=== PATIENT | female | born 1935 | race Caucasian/White ===

== ENCOUNTER → 2018-02-04 | Outpatient (CLI) | payer OTHER ==
[~2018-02-04] MED LIST: ACETAMINOPHEN325 M1 PO; ACTOS 30 MG TAB30 MG PO; ALLERGY RELIEF60 MG PO; BENAZEPRIL HCL10 MG PO; BONIVA150 MG PO; CELEBREX 200 M200 MG PO; CLARITIN10 MG PO; CLOTRIMAZOLE-BE15 GM TP; COUMADIN 2.5MG2.5 M1 PO; COUMADIN 3 MG TA3 MG PO; DIGOXIN250 MCG PO; ENOXAPARIN120 MG/0.8 SUBQ; ENOXAPARIN80 MG/0.8 SQ; FENTANYL PA25 MCG/HR TP; FEXOFENADINE HC60 MG PO; FUROSEMIDE 40 M40 M1 PO; HYDROCODON-ACE1 EACH PO; HYDROCODONE-AP1 EAC6 PO; JANTOVEN1 MG PO; JANUVIA50 MG PO; LASIX 20 MG TAB20 MG PO; LEVOCETIRIZINE D5 MG PO; LIDODERM 5%1 PATCH; LIPITOR10 MG PO; LIPITOR40 MG PO; LOPRESSOR25 PO; LOTENSIN5 MG PO; MELOXICAM7.5 MG PO; NEURONTIN600 MG PO; OMEPRAZOLE20 MG PO; OXYBUTYNIN CHLO10 MG PO; OXYCODONE-ACET1 EACH PO; PERCOCET 5-3251 EACH PO; PIOGLITAZONE15 MG PO; POTASSIUM20 PO; PRILOSEC 20 MG20 MG PO; TRADJENTA5 MG PO; VITAMIN D31000 UNI2 PO; VITAMIN D3400 UNIT PO
== END ==
LOC: HYPER 01-21 16:17
DX: E11.622 Type 2 diabetes mellitus with other skin ulcer (principal); L97.821 Non-pressure chronic ulcer of other part of left lower leg limited to breakdown of skin; E11.36 Type 2 diabetes mellitus with diabetic cataract; E11.22 Type 2 diabetes mellitus with diabetic chronic kidney disease; I12.9 Hypertensive chronic kidney disease with stage 1 through stage 4 chronic kidney disease, or unspecified chronic kidney disease; N18.4 Chronic kidney disease, stage 4 (severe); B37.2 Candidiasis of skin and nail; D64.9 Anemia, unspecified; E78.5 Hyperlipidemia, unspecified; G30.9 Alzheimer's disease, unspecified; I87.2 Venous insufficiency (chronic) (peripheral); M10.9 Gout, unspecified; M16.9 Osteoarthritis of hip, unspecified; F32.9 Major depressive disorder, single episode, unspecified; F02.80 Dementia in other diseases classified elsewhere, unspecified severity, without behavioral disturbance, psychotic disturbance, mood disturbance, and anxiety; Z79.01 Long term (current) use of anticoagulants; Z79.84 Long term (current) use of oral hypoglycemic drugs; Z95.2 Presence of prosthetic heart valve

== ENCOUNTER → 2018-02-18 | Outpatient (CLI) | payer OTHER | LOC: HYPER 07:14 | DX: E11.622 Type 2 diabetes mellitus with other skin ulcer (principal); L97.821 Non-pressure chronic ulcer of other part of left lower leg limited to breakdown of skin; E11.36 Type 2 diabetes mellitus with diabetic cataract; E11.22 Type 2 diabetes mellitus with diabetic chronic kidney disease; I12.9 Hypertensive chronic kidney disease with stage 1 through stage 4 chronic kidney disease, or unspecified chronic kidney disease; N18.4 Chronic kidney disease, stage 4 (severe); E78.5 Hyperlipidemia, unspecified; B37.2 Candidiasis of skin and nail; D64.9 Anemia, unspecified; G30.9 Alzheimer's disease, unspecified; I87.2 Venous insufficiency (chronic) (peripheral); K21.9 Gastro-esophageal reflux disease without esophagitis; M16.9 Osteoarthritis of hip, unspecified; M10.9 Gout, unspecified; F32.9 Major depressive disorder, single episode, unspecified; F02.80 Dementia in other diseases classified elsewhere, unspecified severity, without behavioral disturbance, psychotic disturbance, mood disturbance, and anxiety; Z79.01 Long term (current) use of anticoagulants; Z95.2 Presence of prosthetic heart valve; Z79.84 Long term (current) use of oral hypoglycemic drugs ==

== ENCOUNTER → 2018-03-12 | Outpatient (CLI) | payer OTHER | LOC: HYPER 06:52 | DX: E11.622 Type 2 diabetes mellitus with other skin ulcer (principal); L97.821 Non-pressure chronic ulcer of other part of left lower leg limited to breakdown of skin; E11.36 Type 2 diabetes mellitus with diabetic cataract; E11.22 Type 2 diabetes mellitus with diabetic chronic kidney disease; I12.9 Hypertensive chronic kidney disease with stage 1 through stage 4 chronic kidney disease, or unspecified chronic kidney disease; N18.4 Chronic kidney disease, stage 4 (severe); E78.5 Hyperlipidemia, unspecified; B37.2 Candidiasis of skin and nail; D64.9 Anemia, unspecified; G30.9 Alzheimer's disease, unspecified; I87.2 Venous insufficiency (chronic) (peripheral); K21.9 Gastro-esophageal reflux disease without esophagitis; M10.9 Gout, unspecified; M16.9 Osteoarthritis of hip, unspecified; N39.3 Stress incontinence (female) (male); N30.90 Cystitis, unspecified without hematuria; F32.9 Major depressive disorder, single episode, unspecified; F02.80 Dementia in other diseases classified elsewhere, unspecified severity, without behavioral disturbance, psychotic disturbance, mood disturbance, and anxiety; Z79.01 Long term (current) use of anticoagulants; Z79.84 Long term (current) use of oral hypoglycemic drugs; Z95.2 Presence of prosthetic heart valve ==

== ENCOUNTER 2018-10-21 11:44 | Inpatient (IN) | payer OTHER ==
[~2018-10-21] VITALS: Ht 147.3 cm; Wt 65.4 kg
[~2018-10-21 11:44] MED LIST changes: -OMEPRAZOLE20 MG PO; +OMEPRAZOLE40 MG PO
[2018-10-21 11:45] VITALS: BP 104/56
[2018-10-21 12:12] LABS: BASOPHILS 0.4 % (0.0-2.0); HEMATOCRIT 26.5 % (37.0-47.0); HEMOGLOBIN 8.6 gm/dL (12.0-15.0); LYMPHOCYTES 12.2 % (24.0-44.0); MCH 31.3 pg (26.0-34.0); MCHC 32.3 g/dL (28.0-37.0); MCV 96.6 fL (80.0-100.0); MONOCYTES 7.6 % (1.0-8.0); PLATELET COUNT 225 thou/uL (150-400); POLYS 78.8 % (36.0-66.0); RBC 2.75 mil/uL (4.20-5.00); RDW 14.3 % (10.5-14.5); WBC 6.3 thou/uL (4.0-11.0)
[2018-10-21 12:19] LABS: ANION GAP 9 mmol/L (7-16); BUN 51 mg/dL (7-18); CALCIUM 9.4 mg/dL (8.5-10.1); CHLORIDE 103 mmol/L (98-107); CO2 22 mmol/L (21-32); CREATININE 2.3 mg/dL (0.6-1.0); GLUCOSE 161 mg/dL (74-106); POTASSIUM 5.1 mmol/L (3.5-5.1); SODIUM 134 mmol/L (136-145)
[2018-10-21 12:28] LABS: ALBUMIN 3.1 g/dL (3.4-5.0); MAGNESIUM 1.1 mg/dL (1.8-2.4); SGOT 15 U/L (15-37); SGPT 13 U/L (30-65); TOTAL BILIRUBIN 0.3 mg/dL (<0.1-1.0); TOTAL PROTEIN 6.9 g/dL (6.4-8.2); TROPONIN-I <0.06 ng/mL (<0.06)
[2018-10-21 12:31] LABS: APTT 56.5 Seconds (24.5-32.8); INR 7.3
[2018-10-21 12:52] LABS: URINE BILIRUBIN NEGATIVE (Negative); URINE BLOOD 2+ (Negative); URINE CLARITY HAZY; URINE COLOR YELLOW; URINE GLUCOSE-RANDOM* NEGATIVE (Negative); URINE KETONES NEGATIVE (Negative); URINE LEUKOCYTES-REFLEX 2+ (Negative); URINE NITRITE-REFLEX NEGATIVE (Negative); URINE PROTEIN (DIPSTICK) TRACE (Negative); URINE SPECIFIC GRAVITY <= 1.005 (1.005-1.035); URINE UROBILINOGEN 0.2 E.U./dl (0.2-1.0)
[2018-10-21 13:10] LABS: CASTS None Seen /LPF (None Seen); SQUAMOUS 0-3 Few /LPF (0-3)
[2018-10-21 13:11] LABS: BACTERIA-REFLEX 1-9 Few /HPF (None Seen); URINE RBC 0-2 Rare /HPF (0-2); URINE WBC-REFLEX 6-15 Few /HPF (0-5)
[2018-10-21 13:12] LABS: AMORPHOUS URATES Few /LPF (None Seen); AMP/METHAMP Negative (Negative); BARBITURATES Negative (Negative); BENZODIAZEPINES Negative (Negative); COCAINE Negative (Negative); METHADONE Negative (Negative); OPIATES POSITIVE (Negative); PCP Negative (Negative); WBC CLUMPS Rare (None Seen)
[2018-10-21] MEDS ORDERED: PERCOCET PO (15:08)
[2018-10-21] MEDS ORDERED: VALACYCLOVIR1000 MG PO (15:08)
[2018-10-21] MEDS ORDERED: JANUVIA100 MG PO (15:09)
[2018-10-21] MEDS ORDERED: DEMADEX20 MG PO (15:10)
[2018-10-21] MEDS ORDERED: LOTENSIN10 MG PO (15:10)
[2018-10-21] MEDS ORDERED: ALLOPURINOL 10100 M1 PO (15:11)
[2018-10-21] MEDS ORDERED: NAMENDA 5 MG TAB5 M1 PO (15:11)
[2018-10-21] MEDS ORDERED: MYRBETRIQ50 MG PO (15:13)
[2018-10-21] MEDS ORDERED: TOLTERODINE TART4 MG PO (15:13)
[2018-10-21] MEDS ORDERED: VITAMIN D31000 UNIT PO (15:14)
[2018-10-21 15:46] VITALS: BP 91/57
[2018-10-21 16:42] VITALS: BP 125/39
[2018-10-21 17:05] VITALS: BP 123/93
--- NOTE | 2018-10-21 18:48 | NUR ---
PT ARRIVED FROM ED TO ROOM 431 AT 1700. ADMISSION PROCESS STARTED BY SANTINO ADMISSION NURSE. ADMISSION ASSESSMENT COMPLETED BY THIS RN, ASSESSMENT CHARTED. PT A&O,X4, SOME LANGUAGE BARRIER NOTED. C/O UPPER BACK SHINGLES AND R/T PAIN, MAINTAINING PRECAUTIONS. PT REPORTS A WALKER AT HOME, WEAKNESS NOTED. PT LYING IN BED NOW. END OF SHIFT.
[2018-10-21 20:04] VITALS: BP 95/58
--- NOTE | 2018-10-22 04:33 | NUR ---
Pt A/OX4. C/o left upper back pain medicated with Tylenol per EMAR reports only takes Tylenol for pain,reports partial relief. Area inflammed red and moist with some scabbed areas. Airborne isolation maintained. Up with assist of 1 RW/GB. Voiding without problems,wears briefs for stress incontinence. Fall precautions in place. Will continue to monitor pt.
[2018-10-22 05:09] VITALS: BP 112/92
[2018-10-22 05:52] LABS: ABSOLUTE NEUTROPHILS 3.4 thou/uL (1.4-8.2); BASOPHILS 0.6 % (0.0-2.0); HEMATOCRIT 23.9 % (37.0-47.0); HEMOGLOBIN 7.9 gm/dL (12.0-15.0); LYMPHOCYTES 18.9 % (24.0-44.0); MCH 31.5 pg (26.0-34.0); MCV 95.7 fL (80.0-100.0); MONOCYTES 8.3 % (1.0-8.0); PLATELET COUNT 194 thou/uL (150-400); POLYS 70.2 % (36.0-66.0); WBC 4.9 thou/uL (4.0-11.0)
[2018-10-22 06:01] LABS: PROTIME 12.8 Seconds (9.3-11.4)
[2018-10-22 06:02] LABS: CALCIUM 9.3 mg/dL (8.5-10.1); CREATININE 1.7 mg/dL (0.6-1.0); MAGNESIUM 2.9 mg/dL (1.8-2.4)
[2018-10-22 06:10] LABS: INR 1.2
--- NOTE | 2018-10-22 09:00 | HC ---
[facility] [address] CONSULTATION Name: REZA SLAUGHTER Room #: 431-P ADM IN M.R.#: [id number] Admission: 10/21/18 ������������������ Attend Phys: Sergio Thakur MD Discharge: ������������������ Date of : 37 Report #: [id number] THIS REPORT FOR: //name// CC: Francisco Thakur INFECTIOUS DISEASE CONSULTATION REASON FOR CONSULTATION: I was asked to evaluate concerning persistent left chest wounds in the setting of dermatomal zoster, progressive confusion. HISTORY OF PRESENT ILLNESS: The patient is an 83-year-old known history of dementia, prosthetic aortic valve replacement in 2010, approximately 3 weeks ago developed left chest dermatomal zoster. Has been treated with acyclovir, most recently was placed on Valtrex. No fever, chills, or sweats. Persistent pain. Wound has failed to heal. No fever, chills, or sweats. Confusional state has worsened. General debility. The patient is unable to be cared for by her at home. No cough or sputum production. No congestive heart failure symptoms or syncope. No nausea, vomiting or diarrhea. Reasonable urine output. No other skin lesions reported. REVIEW OF SYSTEMS: A 10-point review of systems is negative other than what is described above. PAST MEDICAL HISTORY: Anemia, thoracic aortic aneurysm repair, aortic valve replacement in 2010, long-term anticoagulation, bronchitis, cerebrovascular disease, chronic kidney disease, costochondritis, diabetes, diarrhea, lumbar disk disease, diverticulitis, right femur fracture in 2012, gastroesophageal reflux, osteoarthritis, hyperlipidemia, hypertension, insomnia, IBS, dementia, obesity, osteoporosis, venous stasis disease, urinary incontinence, and vitamin D deficiency. ALLERGIES: No known allergies. MEDICATIONS: As noted on her MAR, which were reviewed including valacyclovir. FAMILY HISTORY: Noncontributory. SOCIAL HISTORY: Nonsmoker, no significant alcohol intake. PHYSICAL EXAMINATION: VITAL SIGNS: She is afebrile, hemodynamically stable. GENERAL: She was alert and cooperative. She was confused. SKIN: With extensive dermatitis and ulceration involving the left chest, posterior and wrapping around beneath the left breast. This area was tender to [facility] [address] [place] [address] CONSULTATION Name: REZA SLAUGHTER Room #: 431-P ADM IN M.R.#: [id number] Admission: 10/21/18 ������������������ Attend Phys: Sergio Thakur MD Discharge: ������������������ Date of : 37 Report #: [id number] palpation. Intertrigo beneath her breasts. No palpable adenopathy. HEENT: Eyes, without scleral icterus. Mouth without mucositis. NECK: Supple. LUNGS: Clear. HEART: Regular with crisp valve sound on the aortic area. No gallop or rub. ABDOMEN: Soft, nontender. No hepatosplenomegaly or mass. GENITOURINARY: External genitalia, rectal examination not performed. EXTREMITIES: A 2+ peripheral edema in her lower extremities below the knee. Mild venous stasis dermatitis changes. No other ulcerations. Cranial nerves intact. Strength in upper and lower extremities was symmetric, overall general weakness. Mood normal. LABORATORY STUDIES: Sodium 134, potassium 5.1, bicarbonate 22, and creatinine 2.3. Liver function tests normal. C-reactive protein 34. CPK 52, troponin negative. INR 7. Hemoglobin 8.6, WBC 6.3, and platelet count 225,000. Differential unremarkable. Urine drug screen, opiates. Urinalysis, few WBCs, few bacteria. Urine culture pending. CT of the head, no acute changes. IMPRESSION: 1. An 83-year-old with nonhealing wounds from previous dermatomal zoster. I am suspecting most of the viral infection has resolved, although at her age, it is possible to have some persistence. She will need further wound care and treat for secondary yeast infection. 2. Aortic valve replacement with elevated INR. 3. Dementia. 4. Failure to thrive. 5. Anemia. 6. Chronic kidney disease. RECOMMENDATIONS: We will continue valacyclovir twice a day. Had gabapentin for pain relief. Continue with wound care and fluconazole. Follow serial laboratory studies. Social service to assist with potential placement. ��������������������������������������������� <ELECTRONICALLY SIGNED> ���������������������������������������� By: Cricket Kline MD ��������������������������������������������� 10/22/18 0900 1607 0248 Cricket Kline MD /nt
--- NOTE | 2018-10-22 15:54 | EKG ---
[address] [address] ELECTROCARDIOGRAM REPORT Name: REZA SLAUGHTER Room #: 431-P ADM IN M.R.#: [id number] ������������������ Admission: 10/21/18 ������������������ Attend Phys: Sergio Thakur MD Discharge: ������������������ Date of : 37 Report #: [id number] ����������������������������������������������������������������� [id number] THIS REPORT FOR: //name// [facility] ED Test Date: 2018-10-21 Test Time: 12:28:21 Pat Name: REZA SLAUGHTER Department: Room: [facility] Gender: F City Clerk: ANIBAL : 1935 Requested By: Cricket Morse Order Number: [id number] MD: Edmundo Echeverria Measurements Intervals [place] Rate: 100 P: DC: QRS: -13 QRSD: 100 T: 64 QT: 354 QTc: 457 Interpretive Statements Atrial fibrillation Ventricular premature complex Compared to ECG 01/17/2015 07:36:17 Ventricular premature complex(es) now present Sinus rhythm no longer present ST (T wave) deviation no longer present Electronically Signed On 10-22-2018 15:54:27 CDT by Edmundo Echeverria [email or web address] ��������������������������������������������� <ELECTRONICALLY SIGNED> ���������������������������������������� By: Edmundo Echeverria MD ��������������������������������������������� 10/22/18 1554 1228 1228 Edmundo Echeverria MD /EPI
[2018-10-22 16:45] VITALS: BP 120/68
[2018-10-22 18:58] LABS: % SATURATION 13 % (20-39); IRON 26 ug/dL (50-170); TIBC 208 ug/dL (250-450)
--- NOTE | 2018-10-22 19:25 | NUR ---
ASSUMED CARE OF PATIENT AT 0715, PATIENT ALERT WITH CONFUSION. C/O SOME PAIN WITH SHINGLES LEFT UPPER BACK AREA, OPEN TO AIR. WOUND CARE SAW PATIENT , WOUND ORDERS IN, WOUND CARE DONE THIS EVENING. TYLENOL 650 MG GIVEN X 1 THIS SHIFT, THIS RN NOTIFIED DR JACK OF NEEDING SOMETHING MORE FOR PAIN, NEW ORDER FOR GABAPENTIN RECEIVED. PATIENT HAS LEFT AC IV IN PLAC WITH NS AT 80CC/HR. IV FLUIDS D/C THIS SHIFT. PATIENT UP TO CHAIR MOST OF THE DAY. COUMADIN STARTED AT 1800 TODAY. WILL CONTINUE TO MONITOR.
[2018-10-22 19:26] LABS: FOLIC ACID 10.8 ng/mL (8.6-58.9)
[2018-10-22 21:25] VITALS: BP 113/73
[2018-10-23 04:30] VITALS: BP 108/49
[2018-10-23 05:56] LABS: HEMATOCRIT 23.5 % (37.0-47.0); HEMOGLOBIN 7.5 gm/dL (12.0-15.0); MCH 30.7 pg (26.0-34.0); RBC 2.45 mil/uL (4.20-5.00); WBC 5.4 thou/uL (4.0-11.0)
[2018-10-23 06:06] LABS: CALCIUM 9.2 mg/dL (8.5-10.1); CREATININE 1.4 mg/dL (0.6-1.0); INR 1.1; POTASSIUM 4.7 mmol/L (3.5-5.1); PROTIME 11.7 Seconds (9.3-11.4)
--- NOTE | 2018-10-23 06:20 | NUR ---
Assumed pt care at 1900. A/OX4 with periods of confusion noted, able to make needs known. VSS.Isoaltion maintained for shingles.Pt declined dressing change at HS since it had been done at 1800. Drsg on back C/D/I.Voiding without problems. Fall precautions in place.
[2018-10-23 08:12] VITALS: BP 119/77
--- NOTE | 2018-10-23 11:00 | HC ---
[facility] [place] [address] CONSULTATION Name: REZA SLAUGHTER Room #: 431-P ADM IN M.R.#: [id number] Admission: 10/21/18 ������������������ Attend Phys: Sergio Thakur MD Discharge: ������������������ Date of : 37 Report #: [id number] THIS REPORT FOR: //name// CC: Francisco Thakur DATE OF SERVICE: 10/22/2018 CHIEF COMPLAINT: Varicella zoster to the left chest. HISTORY OF PRESENT ILLNESS: This is an 83-year-old female patient who developed a rash to her left chest approximately 3 weeks ago. It appeared to likely be shingles. She was started on antiviral medications. She has had minimal relief; however, the area has become very painful with drainage. The patient cannot provide a lot of information about herself. The patient's is in her room. PAST MEDICAL HISTORY: Positive for history of acute cystitis, allergic rhinitis, anemia, thoracic aortic aneurysm repaired in 2010, aortic stenosis, aortic valve replacement, bronchitis, cerebral ischemia, chronic kidney disease, diabetes, diarrhea, hypertension, hyperlipidemia, spinal stenosis, and vitamin D deficiency. SOCIAL HISTORY: Negative for alcohol or tobacco. She is , accompanied by her . FAMILY HISTORY: Noncontributory. REVIEW OF SYSTEMS: CONSTITUTIONAL: The patient denies fever, chills, or weight loss. NEUROLOGICAL: The patient denies focal weakness, numbness, or tingling. EYES: The patient denies visual changes, redness, or drainage. ENT: The patient denies earache, nasal drainage, sore throat. CARDIOVASCULAR: The patient denies chest pain, palpitations, or diaphoresis. PULMONARY: The patient denies cough or shortness of breath. GASTROINTESTINAL: The patient denies nausea, diarrhea, or abdominal pain. ORTHOPEDIC: The patient does complain of the pain in her left chest wall related to her rash. Other systems in a 14-point review of systems are negative. PHYSICAL EXAMINATION: VITAL SIGNS: Include temperature 36.3, pulse 99, respiratory rate of 18, blood pressure 112/92. GENERAL: This is a chronically ill-appearing female patient who appears to be in minimal distress. [facility] [address] [place] [address] CONSULTATION Name: [facility] Room #: 431-P ADM IN M.R.#: [id number] Admission: 10/21/18 ������������������ Attend Phys: Sergio Thakur MD Discharge: ������������������ Date of : 37 Report #: [id number] HEENT: Head normocephalic. Nose and throat are clear. NECK: Supple. LUNGS: Clear. HEART: Regular rhythm without murmur. ABDOMEN: Soft. Bowel sounds present. CHEST: Chest wall demonstrates extensive dermatitis, large areas of ulceration in a dermatomal type distribution around the left chest beneath her left breast. Areas are tender to palpation throughout. NEUROLOGIC: The patient is alert. She is a little bit confused, does appear to have a symmetrical motor exam. LABORATORY DATA: Include white blood cell count 4.0 with hemoglobin 7.9, hematocrit 23.9. Sodium 140, potassium 5.0, CO2 20, BUN 38, and creatinine 1.7. INR is 1.2, although initially on admission it was 7.3. CLINICAL IMPRESSION: 1. Left chest wall zoster. 2. Dementia. 3. Chronic kidney disease. RECOMMENDATIONS: At this point in time, the patient is being managed with Valtrex. I will recommend topical Silvadene, morphine with Xeroform gauze, ABDs to the open areas to help control pain and decrease superficial wound infection. One could consider the addition of prednisone, although we will review this with Dr. Kline, Infectious Disease. Certainly, this would exacerbate her glycemic control. She will need aggressive nutritional support to maintain wound healing. I appreciate being asked to see her in consultation. ��������������������������������������������� <ELECTRONICALLY SIGNED> ���������������������������������������� By: Timbo Ibrahim MD ��������������������������������������������� 10/23/18 1100 1730 2356 Timbo Ibrahim MD /nt
--- NOTE | 2018-10-23 11:57 | NUR ---
Case opened to follow for dc planning. Welfare Adviser visited with the pt and her spouse at bedside. Cm role introduced. Pt is a&ox3 but forgetful. Pt's spouse indicates that she is weak. Therapy recommendations for SNF discussed. They are receptive and note the pt was at [facility] in 2014 for rehab. They would like to go there again if a bed is available. Welfare Adviser spoke with admissions and they are likely have a bed tomorrow or Sunday. Dc information systems planner to fax referral to [facility] for consideration. Pt uses a rwalker at home. They have supportive family. Possible dc to snf 1-2 days. Will follow.
--- NOTE | 2018-10-23 12:05 | NUR ---
WOUND CARE FOLLOW UP; ROUNDING WITH KIP ELEVATOR REPAIR MECHANIC AND GURDEEP MANAGER SOFTWARE. THE SHINGLES RASH IS UNCHANGED IN APPEARANCE SSINCE YESTERDAY. GABAPENTIN INCREASE HAS CERTAINLY IMPROVED TODAY. THE PATIENT IS NOT CRYING AND IS SMILING AND TALKATIVE TODAY. RECOMMENDATION; CONTINUE POC DISCUSSED WITH STAFF
--- NOTE | 2018-10-23 13:39 | NUR ---
FAXED REFERRAL TO [facility] SPOKE WITH ROSALEE IN ADM SHE RECEIVED REFERRAL AND CAN ACCEPT PT AT DISCHARGE. ANTICIPATE DC TOMORROW. DCP TO FOLLOW.
--- NOTE | 2018-10-23 15:37 | NUR ---
Assumed care of pt at 0700. Pt a&ox4 but forgetful sometimes. Pain controlled with prn pain meds. Dressing changed. SBA assist w/walker and gaitbelt. Fall precautions in place. Will continue to monitor.
[2018-10-23 16:22] VITALS: BP 101/63
[2018-10-23 21:10] VITALS: BP 128/54
--- NOTE | 2018-10-24 04:54 | NUR ---
ASSUMED TP CARE 1899. REASSESSMENT COMPLETE. VSS. PT ALERT ADN ORIENTED, FORGETFUL. IV DRESSING C/D/I. DRESSING CHANGE COMPLETE. DENIES PAIN. DENIES N/V. WILL CONTINUE POC UNTIL EOS.
[2018-10-24 05:45] LABS: HEMATOCRIT 25.8 % (37.0-47.0); HEMOGLOBIN 8.5 gm/dL (12.0-15.0); MCH 31.5 pg (26.0-34.0); MCHC 32.9 g/dL (28.0-37.0); MCV 95.9 fL (80.0-100.0); RBC 2.69 mil/uL (4.20-5.00); WBC 5.2 thou/uL (4.0-11.0)
[2018-10-24 05:55] LABS: INR 1.3
[2018-10-24 05:57] LABS: CALCIUM 9.8 mg/dL (8.5-10.1); CREATININE 1.2 mg/dL (0.6-1.0); MAGNESIUM 1.5 mg/dL (1.8-2.4); POTASSIUM 4.5 mmol/L (3.5-5.1)
[2018-10-24 08:00] VITALS: BP 118/66
[2018-10-24] MEDS ORDERED: KEFLEX500 M1 PO (13:26)
[2018-10-24] MEDS ORDERED: IRON325 PO (13:26)
[2018-10-24] MEDS ORDERED: COUMADIN 1MG TAB1 M1 PO (13:28)
[2018-10-24] MEDS ORDERED: LIPITOR40 MG PO (13:28)
[2018-10-24] MEDS ORDERED: NEURONTIN 300300 M1 PO (13:29)
[2018-10-24] MEDS ORDERED: DEMADEX20 MG PO (13:30)
[2018-10-24] MEDS ORDERED: A THRU Z SELEC1 EAC3 PO (13:31)
[2018-10-24] MEDS ORDERED: VALACYCLOVIR1000 MG PO (13:32)
--- NOTE | 2018-10-24 16:22 | NUR ---
Assumed care of pt at 0700. Pt a&o but forgetful at times. Up with 1 person assist but weaker this am. Dressing changed. Fall precautions in place. Pt discharged to [facility]. Report given to Kimmie.
== END 2018-10-24 15:50 | DRG 682 ==
LOC: ER 11:44 → EROBS 14:16 → 4E 14:16
PROVIDERS: Emergency Medicine; Nurse Practitioner; ADMIT Internal Medicine
DX: N17.9 Acute kidney failure, unspecified (principal); E43 Unspecified severe protein-calorie malnutrition; L03.313 Cellulitis of chest wall; N39.0 Urinary tract infection, site not specified; I13.0 Hypertensive heart and chronic kidney disease with heart failure and stage 1 through stage 4 chronic kidney disease, or unspecified chronic kidney disease; B02.9 Zoster without complications; E11.22 Type 2 diabetes mellitus with diabetic chronic kidney disease; N18.2 Chronic kidney disease, stage 2 (mild); E78.5 Hyperlipidemia, unspecified; G47.00 Insomnia, unspecified; E66.9 Obesity, unspecified; G47.33 Obstructive sleep apnea (adult) (pediatric); M19.90 Unspecified osteoarthritis, unspecified site; M81.0 Age-related osteoporosis without current pathological fracture; D64.9 Anemia, unspecified; I50.9 Heart failure, unspecified; E53.8 Deficiency of other specified B group vitamins; N32.81 Overactive bladder; L30.8 Other specified dermatitis; K21.9 Gastro-esophageal reflux disease without esophagitis; R62.7 Adult failure to thrive; E83.42 Hypomagnesemia; I27.20 Pulmonary hypertension, unspecified; F03.90 Unspecified dementia, unspecified severity, without behavioral disturbance, psychotic disturbance, mood disturbance, and anxiety; I25.10 Atherosclerotic heart disease of native coronary artery without angina pectoris; Z95.2 Presence of prosthetic heart valve; Z87.81 Personal history of (healed) traumatic fracture; Z68.30 Body mass index [BMI] 30.0-30.9, adult; Z79.01 Long term (current) use of anticoagulants; Z79.899 Other long term (current) drug therapy
CPT/HCPCS: 10084

== ENCOUNTER 2019-01-17 13:01 | Inpatient (IN) | payer OTHER ==
[~2019-01-17] VITALS: Ht 144.8 cm; Wt 58.2 kg
[2019-01-17] VITALS (18 sets, daily range): BP systolic 81–135; BP diastolic 31–77
[~2019-01-17 13:01] MED LIST changes: +A THRU Z SELEC1 EAC3 PO; +ALLOPURINOL 10100 M1 PO; +COUMADIN 1MG TAB1 M1 PO; +DEMADEX20 MG PO; +IRON325 PO; +JANUVIA100 MG PO; +KEFLEX500 M1 PO; +LOTENSIN10 MG PO; +MYRBETRIQ50 MG PO; +NAMENDA 5 MG TAB5 M1 PO; +NEURONTIN 300300 M1 PO; +PERCOCET PO; +TOLTERODINE TART4 MG PO; +VALACYCLOVIR1000 MG PO; +VITAMIN D31000 UNIT PO
[2019-01-17 13:51] LABS: URINE BILIRUBIN NEGATIVE (Negative); URINE BLOOD TRACE (Negative); URINE CLARITY CLEAR; URINE COLOR YELLOW; URINE GLUCOSE-RANDOM* NEGATIVE (Negative); URINE KETONES NEGATIVE (Negative); URINE LEUKOCYTES-REFLEX NEGATIVE (Negative); URINE NITRITE-REFLEX NEGATIVE (Negative); URINE PROTEIN (DIPSTICK) NEGATIVE (Negative); URINE UROBILINOGEN 0.2 E.U./dl (0.2-1.0)
[2019-01-17] MEDS ORDERED: TRADJENTA5 MG (13:56)
[2019-01-17] MEDS ORDERED: DETROL2 MG PO (13:56)
[2019-01-17] MEDS ORDERED: XYZAL5 MG PO (13:57)
[2019-01-17] MEDS ORDERED: DEMADEX20 MG PO (13:58)
[2019-01-17] MEDS ORDERED: COUMADIN 1MG TAB1 M1 PO (13:59)
[2019-01-17 14:53] LABS: ABSOLUTE NEUTROPHILS 3.4 thou/uL (1.4-8.2); BASOPHILS 0.7 % (0.0-2.0); EOSINOPHILS 3.2 % (0.0-3.0); HEMATOCRIT 30.9 % (37.0-47.0); HEMOGLOBIN 9.7 gm/dL (12.0-15.0); LYMPHOCYTES 17.4 % (24.0-44.0); MCH 30.6 pg (26.0-34.0); MCHC 31.3 g/dL (28.0-37.0); MCV 97.8 fL (80.0-100.0); MONOCYTES 7.7 % (1.0-8.0); RBC 3.16 mil/uL (4.20-5.00); RDW 17.4 % (10.5-14.5); WBC 4.8 thou/uL (4.0-11.0)
[2019-01-17 15:11] LABS: INR 3.7; PROTIME 38.4 Seconds (9.3-11.4)
[2019-01-17 15:15] LABS: LARGE PLATELETS RARE; PLATELET COUNT 114 thou/uL (150-400)
[2019-01-17 15:24] LABS: ANION GAP 8 mmol/L (7-16); BUN 115 mg/dL (7-18); CALCIUM 9.1 mg/dL (8.5-10.1); CHLORIDE 104 mmol/L (98-107); CO2 27 mmol/L (21-32); CREATININE 4.4 mg/dL (0.6-1.0); GLUCOSE 112 mg/dL (74-106); POTASSIUM 5.7 mmol/L (3.5-5.1); SODIUM 139 mmol/L (136-145)
[2019-01-17 15:34] LABS: ALBUMIN 3.5 g/dL (3.4-5.0); SGOT 57 U/L (15-37); SGPT 27 U/L (30-65); TOTAL BILIRUBIN 0.5 mg/dL (<0.1-1.0); TOTAL PROTEIN 6.9 g/dL (6.4-8.2); TROPONIN-I <0.06 ng/mL (<0.06)
--- NOTE | 2019-01-17 17:58 | NUR ---
PT BP TRENDING DOWN, FLUIDS INFUSED, DR AVELAR CALLED AND UPDATED, ORDERS TO START LEVOPHED AND ADMIT TO ICU.
--- NOTE | 2019-01-17 20:49 | NUR ---
VAT CONSULTED FOR A LINE FOR THIS PT IN THE ER WITH HYPOTENSION AND NEEDING LEVOPHED. PT HAS CREAT OF 4.4 AND MAY REQUIRE DIALYSIS. IR IS NOT AVAIL FOR LINE PLACEMENT. LT TLPICC PLACED IN LT IJ AND NO COMPLICATIONS. LINE RELEASED FOR USE AFTER CXR WAS REVIEWED BY MYSELF AND DR AVELAR IN THE ER.
[2019-01-17 22:42] LABS: HCO3 18.4 mmol/L (22.0-26.0); PCO2 36.1 mmHg (35.0-45.0); PO2 71.7 mmHg (80.0-100.0); sO2 93.4 % (92.0-98.0)
[2019-01-17 22:43] LABS: pH 7.324 (7.360-7.450)
[2019-01-17 23:03] LABS: CALCIUM 8.5 mg/dL (8.5-10.1); CREATININE 3.6 mg/dL (0.6-1.0); POTASSIUM 4.9 mmol/L (3.5-5.1)
[2019-01-18] VITALS (45 sets, daily range): BP systolic 98–139; BP diastolic 38–89
--- NOTE | 2019-01-18 01:36 | NUR ---
PT WAS ADMITTED TO ICU AFTER SHIFT CHANGE. LEVOPHED GTT INFUSING FROM ED, ASSESSMENTS DONE AND DOCUMENTED, ORDERS NOTED. WILL CONTINUE TO TITRATE LEVOPHED GTT.
[2019-01-18 08:45] LABS: HEMATOCRIT 26.5 % (37.0-47.0); HEMOGLOBIN 8.6 gm/dL (12.0-15.0); MCH 31.1 pg (26.0-34.0); MCHC 32.3 g/dL (28.0-37.0); MCV 96.2 fL (80.0-100.0); RBC 2.75 mil/uL (4.20-5.00); RDW 16.4 % (10.5-14.5); WBC 4.9 thou/uL (4.0-11.0)
[2019-01-18 08:56] LABS: CALCIUM 8.7 mg/dL (8.5-10.1); POTASSIUM 4.6 mmol/L (3.5-5.1)
--- NOTE | 2019-01-18 10:17 | EKG ---
[address] [place] [address] ELECTROCARDIOGRAM REPORT Name: REZA SLAUGHTER Room #: 243-P ADM IN M.R.#: [id number] Admission: 01/17/19 Attend Phys: Gary Yi MD Discharge: Date of : 37 Report #: [id number] THIS REPORT FOR: //name// [facility] ED Test Date: 2019-01-17 Test Time: 13:14:48 Pat Name: REZA SLAUGHTER Department: Room: 243 Gender: F Paleologist: WG : 1935 Requested By: Isabel Ford Order Number: [id number] MD: Aly Mckeon Measurements Intervals [place] Rate: 97 P: NV: QRS: -12 QRSD: 110 T: 119 QT: 336 QTc: 427 Interpretive Statements Atrial fibrillation Incomplete left bundle branch block Compared to ECG 10/21/2018 12:28:21 Left bundle-branch block now present Ventricular premature complex(es) no longer present Electronically Signed On 01-18-2019 10:17:04 CDT by Aly Mckeon [email or web address] <ELECTRONICALLY SIGNED> By: Aly Mckeon MD 01/18/19 1017 1314 13 Aly Mckeon MD /ADRIANNE
--- NOTE | 2019-01-18 16:13 | NUR ---
ASSUMED CARE OF PT AT APPROX 0700. PT IS ALERT AND ORIENTED TO SELF AND PLACE BUT IS CONFUSED AT TIME WELL. CONVERSATION IS MOSTLY APPROPRIATE BUT AT TIMES DOES NOT MAKE SENSE. DENIES PAIN AND SOA. EVEN NON LABORED BREATHING. ASSESSMENT CHARTED. CHECKED PATIENT FOR INCONTINENCE FREQUENTLY PATIENT WILL NOT TELL WHEN WET AND DOES NOT ALLOW TO TURN Q2 HOURS. EDUCATED PT AND ON IMPORTANCE OF TURNING WHILE IN BED TO MAINTAIN SKIN INTEGRITY. PT DOES VOICE UNDERSTANDING WELL . WILL CONTINUE TO MONITOR.
[2019-01-19] VITALS (49 sets, daily range): BP systolic 89–132; BP diastolic 44–75
--- NOTE | 2019-01-19 05:31 | NUR ---
PATIENT IS ALERT TO SELF. PATIENT IS UP WITH ASSIST. PATIENT IS A FIB ON TELE. PATIENT IS ON NOREPINEPHRINE DRIP AT 2MCG/KG/HR. PATIENT IS INCONTIENT AT TIMES. PATIENT USES BEDPAN. PATIENTS LBM WAS THE 12TH. STOOL WAS DARK COLOR SMEAR. PATIENT HAS A DAVIES. PATIENT IS IN ISO FOR SHINGLES RASH ON LT CHEST. PATIENT DENIES PAIN. PAITNET IS NOT CURRENTLY ON BLOOD THINNER IT IS HELD AT THIS TIME. SCDS IN PLACE. PATIENT HAS A POOR APPITITE. PATIENT IS ENCOURAGED TO ORAL INTACK. PLAN IS TO TITRATE OFF DRIP AND CONTORL BLOOD PRESSURE. INCREASE INTAKE. WCM. PATIENT IS PROGRESSING TO GOALS.
[2019-01-19 06:21] LABS: HEMATOCRIT 24.8 % (37.0-47.0); HEMOGLOBIN 7.9 gm/dL (12.0-15.0); MCH 30.7 pg (26.0-34.0); MCHC 31.8 g/dL (28.0-37.0); MCV 96.5 fL (80.0-100.0); RBC 2.57 mil/uL (4.20-5.00); RDW 17.1 % (10.5-14.5); WBC 5.5 thou/uL (4.0-11.0)
[2019-01-19 06:42] LABS: CREATININE 2.1 mg/dL (0.6-1.0)
[2019-01-19 06:43] LABS: POTASSIUM 3.4 mmol/L (3.5-5.1)
[2019-01-19 07:18] LABS: PROTIME 52.7 Seconds (9.3-11.4)
[2019-01-19 07:24] LABS: INR 5.1
--- NOTE | 2019-01-19 07:54 | NUR ---
AT BEGINNING OF SHIFT PT WAS IN ISOLATION FOR REPORTED SHINGLES. RN AND PHYSICIAN ASSESSED PT'S SKIN AND THERE ARE NO S/S OF ACTIVE SHINGLES AT THIS TIME. ORDER FOR ISOLATION AND ISOLATION CART D/C BY PHYSICAIN ORDER.
--- NOTE | 2019-01-19 10:43 | NUR ---
AT BEGINNING OF SHIFT ASSESSMENT, PT WAS ALERT TO SELF AND PLACE BUT NOT SITUATION OR TIME. MORNING IS PROGRESSING AND WITH AT BEDSIDE, PT APPEARS TO BE MORE AWARE OF WHAT IS GOING ON AND ORIENTED TO TIME. RN WAS TOLD IN REPORT THAT PT DOES HAVE H/O DEMENTIA AND TAKES NAMENDA AT HOME. WILL CONTINUE TO MONITOR PT AND WATCH FOR ANY ORIENTATION CHANGES.
--- NOTE | 2019-01-19 18:03 | NUR ---
PT HAS VERY POOR APPETITE AND NEEDS LOTS OF ENCOURAGEMENT TO EAT AND DRINK. PT ATE APPROXIMATELY 75% OF BREAKFAST BUT REFUSED LUNCH STATING THE BREAKFAST MADE HER IBS ACT UP. PT FIRST REFUSED DINNER BUT AGREED TO TRY AND EAT AND DRINK SOME DINNER. PT ATE APPROXIMATELY 25% OF DINNER AND DRANK SOME TEA WITH HER DINNER.
[2019-01-19 19:29] LABS: INR 4.4; PROTIME 45.6 Seconds (9.3-11.4)
[2019-01-20] VITALS (21 sets, daily range): BP systolic 110–154; BP diastolic 44–86
[2019-01-20 05:58] LABS: HEMATOCRIT 23.9 % (37.0-47.0); HEMOGLOBIN 7.6 gm/dL (12.0-15.0); MCH 30.8 pg (26.0-34.0); MCHC 31.8 g/dL (28.0-37.0); MCV 96.7 fL (80.0-100.0); RBC 2.47 mil/uL (4.20-5.00); RDW 16.6 % (10.5-14.5); WBC 3.9 thou/uL (4.0-11.0)
[2019-01-20 06:02] LABS: PROTIME 19.8 Seconds (9.3-11.4)
[2019-01-20 06:14] LABS: CALCIUM 9.1 mg/dL (8.5-10.1); CREATININE 1.6 mg/dL (0.6-1.0); INR 1.9; MAGNESIUM 1.2 mg/dL (1.8-2.4); POTASSIUM 3.6 mmol/L (3.5-5.1)
--- NOTE | 2019-01-20 08:00 | NUR ---
SEE [facility] FOR ASSESSMENT. PT SLEEPING OFF/ON. VS WNL. NORBERT PO FLUIDS. GOOD UO. NO BLEEDING NOTED, EXCEPT OLD BRUISING ON EXTREMITIES. ABD SOFT, DENIES PAIN. OR N/V. BROWN STOOL. HGB 7.6 THIS AM. WITH DECREASED INR 1.9.
--- NOTE | 2019-01-20 08:03 | NUR ---
CONT PLAN OF CARE
--- NOTE | 2019-01-20 17:09 | NUR ---
spoke with spouse, patient sleeping soundly. Patient resides with spouse in independent condo. All needs on one level. Condo is handicapped equipt. Patient uses a walker for ambulation. She does not drive. Spouse drives to her apts etc. He reports she became so weak he could not get her to stand. Discussed post acute care. Spouse reports we only want 5N acute rehab at [facility]. Patient has been at skilled care in past at [facility] and they will not return. Spouse does not want skilled care. requested 5N liason follow.
[2019-01-21] VITALS (9 sets, daily range): BP systolic 112–146; BP diastolic 57–96
[2019-01-21 06:02] LABS: HEMATOCRIT 22.9 % (37.0-47.0); HEMOGLOBIN 7.5 gm/dL (12.0-15.0); MCH 31.3 pg (26.0-34.0); MCHC 32.6 g/dL (28.0-37.0); MCV 95.9 fL (80.0-100.0); RBC 2.38 mil/uL (4.20-5.00); RDW 16.2 % (10.5-14.5)
[2019-01-21 06:20] LABS: CALCIUM 9.1 mg/dL (8.5-10.1); CREATININE 1.4 mg/dL (0.6-1.0); MAGNESIUM 1.9 mg/dL (1.8-2.4); POTASSIUM 3.6 mmol/L (3.5-5.1)
[2019-01-21 07:23] LABS: INR 1.2; PROTIME 12.3 Seconds (9.3-11.4)
--- NOTE | 2019-01-21 18:03 | NUR ---
PT CARE ASSUMED APPROX 1625. PT FROM GI LAB VIA ICU. [facility] REPORT CALLED. PT ARRIVED AT [facility]. VSS. DENIES PAIN AND SOA. AFIB RVR ON HEART MONITOR. RATES ONLY SLIGHTLY ELEVATED. FALL PRECAUTIONS INITIATED. PT RESTING WITHOUT ISSUES. PT WAS CONTACTED FOR VERBAL PHONE CONSENT FOR PT'S COLONOSCOPY TOMORROW. THE DOCTOR ALREADY EDUCATED SPOUSE ON BENEFIT VS RISK AND MEDICAL INDICATION TO DO PROCEDURE. PT SPOUSE CONSENTED. BOWEL PREP WILL BE INITIATED ONCE GATORADE ARRIVES FROM DIETARY DEPT. NO CLINICAL ISSUES OR DISTRESS NOTED.
[2019-01-22 00:55] VITALS: BP 143/82
--- NOTE | 2019-01-22 03:55 | NUR ---
ASSESSMENT CHARTED. VSS. ALERT ORIENTED X4, FORGETFUL. AFIB LOW 100'S. BOWEL PREP STARTED TONIGHT, X1 ASSIST TO COMMOD. PLAN FOR COLONOSCOPY TODAY. WILL CONTINUE TO MONITOR AND WITH POC.
[2019-01-22 04:38] LABS: ALBUMIN 3.1 g/dL (3.4-5.0); DIRECT BILIRUBIN 0.3 mg/dL (<0.1-0.3); TOTAL BILIRUBIN 0.8 mg/dL (<0.1-1.0); TOTAL PROTEIN 6.1 g/dL (6.4-8.2)
[2019-01-22 04:57] VITALS: BP 123/65
[2019-01-22 07:39] VITALS: BP 129/63
--- NOTE | 2019-01-22 09:05 | NUR ---
PATIENT SEEN BY LUCI ROSALES NP WITH DR. MANN ON 01/21/19. PATIENT DOES NOT HAVE A QUALIFYING DIAGNOSIS FOR ACUTE REHAB AND AT THIS TIME THERE ARE NO BEDS AVAILABLE ON 5N. SUGGEST FAMILY TO LOOK AT ALTERNATIVE LOCATIONS FOR PATIENT REHAB. GENETIC SUPERVISOR INFORMED. THANK YOU FOR THIS REFERRAL.
[2019-01-22 12:49] LABS: HEMATOCRIT 23.5 % (37.0-47.0); HEMOGLOBIN 7.7 gm/dL (12.0-15.0); MCH 31.4 pg (26.0-34.0); MCHC 32.8 g/dL (28.0-37.0); MCV 95.5 fL (80.0-100.0); RBC 2.46 mil/uL (4.20-5.00); RDW 16.7 % (10.5-14.5); WBC 4.5 thou/uL (4.0-11.0)
--- NOTE | 2019-01-22 13:16 | NUR ---
SPOKE WITH SPOUSE AT BEDSIDE. PLAN COLONOSCOPY TODAY. DISCUSSED 5N WITH A WAIT LIST AND LIKELY NO BEDS. GAVE MEDICARE LIST OF FACILITIES AND DISCUSSED MARH/RHOP. SPOUSE WANTS REFERRAL TO [facility]. THEY LIVE IN [place] AND PREFER [facility].
--- NOTE | 2019-01-22 14:15 | NUR ---
FAXED REFERRAL TO [facility] SPOKE WITH ROSALEE IN ADM SHE RECEIVED REFERRAL AND WILL REVIEW. DP TO FOLLOW.
--- NOTE | 2019-01-22 16:29 | NUR ---
spoke with [facility] they are reviewing. Mr Munoz cont to be interested in 5N. Sp with nish no bed on 5N.
[2019-01-22 16:38] VITALS: BP 137/71
--- NOTE | 2019-01-22 17:25 | NUR ---
PT CARE ASSUMED APPROX 0700. ASSESSMENT CHARTED. DENIES PAIN AND SOA. VSS. COMPLETED DIAGNOSTIC STUDY THIS SHIFT. NO COMPLAINTS SINCE RETURN. PT APPETITE POOR. REFUSING TO EAT SINCE SHE HAS RETURNED. WAS AT BEDSIDE MOST OF SHIFT. HE ENCOURAGED PT TO EAT BUT PT STILL REFUSED. PT AND SPOUSE BOTH DENY QUESTIONS AND CONCERNS REGARDING POC. PT TOLERATING POC. PT COMPLIANT WITH FALL PRECAUTIONS. NO DISTRESS NOTED.
[2019-01-22 19:35] VITALS: BP 129/70
[2019-01-23 03:54] VITALS: BP 157/64
--- NOTE | 2019-01-23 04:12 | NUR ---
PT ALERT AND ORIENTED. C/O SHINGLES PAIN. VITALS STABLE. PATIENT WAS NPO PENDING A VIDEOSCOPE SCHEDULED THIS MORNING. DENIES N/V. DENIES CHEST PAIN OR SOA. PT STABLE. WILL CONTINUE TO FOLLOW POC.
[2019-01-23 09:18] VITALS: BP 133/79
[2019-01-23 10:02] LABS: HEMATOCRIT 23.9 % (37.0-47.0); HEMOGLOBIN 7.7 gm/dL (12.0-15.0); MCH 30.9 pg (26.0-34.0); MCV 96.6 fL (80.0-100.0); RBC 2.48 mil/uL (4.20-5.00); RDW 17.1 % (10.5-14.5); WBC 4.4 thou/uL (4.0-11.0)
[2019-01-23 10:12] LABS: CALCIUM 8.6 mg/dL (8.5-10.1); CREATININE 1.3 mg/dL (0.6-1.0); POTASSIUM 3.5 mmol/L (3.5-5.1)
[2019-01-23 11:22] VITALS: BP 139/64
--- NOTE | 2019-01-23 11:51 | NUR ---
WOUND CARE NOTE UPPER THIGH/GROIN WOUND HEALING, PINK GRANULATION TISSUE, NO DRAINAGE, SPOUSE AT BS STATES WOUND HAS OCCURRED IN GROIN BEFORE FROM INCONT BRIEFS PT WEARS,BUT THIS TIME WOUND WAS WORSE THAN IN THE PAST, SUGGESTED PURCHASING ANOTHER BRAND, NOT SO TIGHT IN AREA, PT ALERT AND COOPERATIVE, SILICONE BORDER DRSG APPLIED, PHOTO TAKEN, SEE NOTES UNDER PROCESS INTERVENTION, TAX COLLECTION COORDINATOR PRESENT RECOMMEDATIONS; CONT W/ CURRENT TX OF SILICONE BORDER DRSG
[2019-01-23] MEDS ORDERED: TYLENOL EXTRA500 MG PO (13:38)
--- NOTE | 2019-01-23 14:13 | NUR ---
PT CARE ASSUMED APPROX 0715. ASSESSMENT CHARTED. PT DENIES PAIN AND SOA. VSS. UP WITH MAX ASSIST X1 AND WALKER. PT COMPLETING CAPSULE STUDY AT THIS TIME BUT ALSO SCHEDULED FOR DISCHARGE. GI APPROVES OF PT LEAVING WITH EQUIPMENT AND A BI DATA MODELER BRING IT BACK LATER AFTER PT COMPLETES STUDY. SPOUSE AWARE OF DISCHARGE TO SKILLED FACILITY AND DENEIS QUESTIONS OR CONCERNS REGARDING POST HOSPITAL CARE. URINARY CATH REMOVED WELL LEFT JUGULAR CL. DR PRADO IS OK WITH PT BEING DISCHARGED WITHOUT POST CATH REMOVAL VOID. RECEIVING NURSE HAS BEEN GIVEN THIS INFORMATION DURING REPORT AND IS AGREEABLE. RECEIVING NURSE ALSO AWARE OF EQUIPMENT FOR STUDY AND WHAT TIME IT IS SUPOOSED TO COME OFF. PT P/U SCHEDULED FOR 1500. WILL MONITOR PT UNITL THEN.
--- NOTE | 2019-01-23 14:51 | NUR ---
[facility] accepting. [facility] has a wait list, have updated spouse daily regarding [facility]. Naila from [facility] completed onsite eval and accepting. Dr Elizabeth agreeable with dc. Faxed orders, chart copied. van for 1500. Spouse notified. patient completing capsule study will request nura adam to assist with retrival of monitor.
--- NOTE | 2019-01-23 15:10 | NUR ---
PT LEAVING AT THIS TIME. WILL NOTIFY SPOUSE PER HIS REQUEST
--- NOTE | 2019-01-23 17:06 | PATH ---
[facility] [address] [place] [address] PATHOLOGY RPT PROCEDURE Name: LILLY SLAUGHTER Room #: 202-P DIS IN M.R.#: [id number] Admission: 01/17/19 Date of : 39 Discharge: 01/23/19 Report #: [id number] Path Case #: [id number] [facility] Accession Number: [id number] . 01 Material submitted: . duodenum - BX DUODENUM . 01 Clinical history: . Preop DX: anemia, heme + stool Postop DX: same R/O sprue . 02 Diagnosis: Small bowel mucosa, duodenum rule out sprue, endoscopic biopsy: - No diagnostic abnormalities present. - Negative for villous blunting or increase in intraepithelial lymphocytes. (IUV/db; 01/23/2019) LBQ 01/23/2019 1459 Local . 02 Electronically signed: . Kamala Dhaliwal MD, Pathologist NPI- [id number] . 01 Gross description: . Received in formalin labeled "Lilly Slaughter, BX duodenum R/O sprue," are two segments of yellow-spencer soft tissue measuring 0.2 x 0.2 x 0.2 cm and 0.4 x 0.3 x 0.2 cm in greatest dimensions. The specimen is submitted entirely in cassette A1. (DAC; 01/22/2019) XDC/XDC 01/22/2019 0856 Local . 02 Pathologist provided ICD-10: D64.9 . 02 CPT . 526048 Specimen Comment: A courtesy copy of this report has been sent to Specimen Comment: [phone], , . Specimen Comment: Report sent to ,DR COLON / DR AVELAR Performed at: [address] [id number] MD Radames Price MD Phone: [phone] Performed at: [address] [id number] [address] [address] PATHOLOGY RPT PROCEDURE Name: DENITAABILIOLILLY Room #: 202-P DIS IN M.R.#: [id number] Admission: 01/17/19 Date of : 39 Discharge: 01/23/19 Report #: [id number] Path Case #: [id number] MD Kamala Vadlamani MD Phone: [phone]
--- NOTE | 2019-01-24 10:31 | P ---
[facility] [place] [address] PROCEDURE REPORT Name: REZA SLAUGHTER Room #: 202-P [facility] IN M.R.#: [id number] Admission: 01/17/19 Attend Phys: aGry Yi MD Discharge: 01/23/19 Date of : 39 Report #: [id number] THIS REPORT FOR: //name// CC: Francisco Yi DATE OF SERVICE: 01/21/2019 PROCEDURE PERFORMED: Upper endoscopy with biopsies. HISTORY OF PRESENT ILLNESS: The patient is an 83-year-old female with anemia and generalized weakness. She had a drop in her hemoglobin from admission. Recent dark stools, although she has also been on oral iron. Stools were Hemoccult positive. The patient has also had weight loss of approximately 20 pounds in the last year. She has been on omeprazole. Last colonoscopy was approximately 10 years ago or longer. Plan is for EGD. DESCRIPTION OF PROCEDURE: The patient has a history of dementia. Her is not available at this time. The procedure was performed under medical necessity, although we did discuss with the yesterday and he was in agreement. Anesthesia was given using propofol per anesthesia. Next, using a standard Olympus upper endoscope, the scope was placed in the patient's mouth and advanced under direct vision through the esophagus, stomach and into the second portion of the duodenum. The larynx was normal in appearance. The esophagus was normal throughout. The GE junction was normal. A small hiatal hernia was noted. Overall, the gastric mucosa was normal. The pylorus was normal and patent. The duodenal bulb, first and second portion were all normal. Random biopsies were obtained to rule out the possibility of celiac sprue. The scope was then withdrawn and the procedure terminated. The patient tolerated the procedure well. IMPRESSION: 1. Small hiatal hernia. 2. Otherwise, normal upper endoscopy. RECOMMENDATIONS: 1. Await biopsy results. 2. Continue PPI therapy. 3. We will discuss proceeding with colonoscopy potentially next with the patient and her . [facility] [address] [place] [address] PROCEDURE REPORT Name: REZA SLAUGHTER Room #: 202-P [facility] IN M.R.#: [id number] Admission: 01/17/19 Attend Phys: Gary Yi MD Discharge: 01/23/19 Date of : 39 Report #: [id number] Thank you for allowing me to participate in her care. <ELECTRONICALLY SIGNED> By: Sinan Curtis MD 01/24/19 1031 1546 0224 Sinan Curtis MD /nt
--- NOTE | 2019-01-24 14:32 | NUR ---
NOTIFIED [facility] TO [employer] [facility]SULE BELT FROM [facility]. THEY DELIVERED THE CAPSULE BELT TO [facility] AT 2:OO AND ROMARIO IN CASE [facility] DELIVERED IT TO GI LAB.
--- NOTE | 2019-01-27 11:07 | PATH ---
[facility] [place] [address] PATHOLOGY RPT PROCEDURE Name: LILLY SLAUGHTER Room #: 202-P DIS IN M.R.#: [id number] Admission: 01/17/19 Date of : 39 Discharge: 01/23/19 Report #: [id number] Path Case #: [id number] [facility] Accession Number: [id number] . 01 Material submitted: . PART A: ileum - BX TERMINAL ILEUM PART B: colon - BX ASCENDING COLON. Modifiers: ascending . 01 Clinical history: . Pre-op diagnosis: Anemia, diarrhea Post-op diagnosis: Diverticulosis A. Chronic diarrhea; R/O microscopic causes B. R/O microscopic causes of diarrhea . 02 Diagnosis: A. Small bowel mucosa, terminal ileum, endoscopic biopsy: - Superficial biopsy fragments showing Peyer's patches. - No increase in intraepithelial lymphocytes or thickening of subepithelial collagen layer. . B. Large intestinal mucosa, ascending colon, endoscopic biopsy: - Non-specific reactive changes. - Negative for active/acute colitis. - Negative for microscopic colitis. - Negative for dysplasia or malignancy. LBQ 01/24/2019 1519 Local . 02 Comment: Part B: The findings are non-specific and include subtle architectural abnormalities associated with an increased cellularity of the lamina propria. The differential diagnosis includes bowel preparation, medication/drug induced effect as well as chronic diverticulitis. Please correlate clinically. (IUV/db; 01/24/2019) . 02 Electronically signed: . Kamala Dhaliwal MD, Pathologist NPI- [id number] . 01 Gross description: . A. The specimen is received in formalin, labeled "Lilly Slaughter, biopsy terminal ileum". Received are two segments of pale spencer soft tissue ranging in size from 0.2 to 0.3 cm in maximum dimensions. The specimen is submitted entirely in cassette A1. . B. The specimen is received in formalin, labeled "Lilly Slaughter, biopsy ascending colon". Received is a segment of pale spencer soft tissue measuring [facility] [address] [place] [address] PATHOLOGY RPT PROCEDURE Name: SUKHJINDERLILLY Room #: 202-P DIS IN M.R.#: [id number] Admission: 01/17/19 Date of : 39 Discharge: 01/23/19 Report #: [id number] Path Case #: [id number] 0.4 cm in maximum dimensions. The specimen is submitted entirely in cassette B1. (CAA; 01/23/2019) QAC/QAC 01/23/2019 0907 Local . 02 Pathologist provided ICD-10: K63.9, D64.9, R19.7 . 02 CPT . 253756, 820394 Specimen Comment: A courtesy copy of this report has been sent to Specimen Comment: [phone], , . Specimen Comment: Report sent to ,DR COLON / DR AVELAR Performed at: [address], [place] [id number] MD Radames Price MD Phone: [phone] Performed at: [address] [id number] MD Kamala Dhaliwal MD Phone: [phone]
== END 2019-01-23 15:11 | DRG 871 ==
LOC: ER 13:01 → EROBS 16:29 → ICU 16:29 → 2N 01-21 16:03
PROVIDERS: Anesthesiology; Internal Medicine; Nurse Practitioner; Nurse Practitioner Family; Physician Assistant; Specialist; ADMIT Internal Medicine
PROC: 0DB98ZX Excision of Duodenum, Via Natural or Artificial Opening Endoscopic, Diagnostic (ICD-10-PCS; principal; 2019-01-21)
PROC: 0DJD8ZZ Inspection of Lower Intestinal Tract, Via Natural or Artificial Opening Endoscopic (ICD-10-PCS; 2019-01-22)
DX: A41.9 Sepsis, unspecified organism (principal); N17.0 Acute kidney failure with tubular necrosis; E43 Unspecified severe protein-calorie malnutrition; G92 Toxic encephalopathy; J96.01 Acute respiratory failure with hypoxia; J96.02 Acute respiratory failure with hypercapnia; K57.31 Diverticulosis of large intestine without perforation or abscess with bleeding; N39.0 Urinary tract infection, site not specified; D68.9 Coagulation defect, unspecified; N18.3 Chronic kidney disease, stage 3 (moderate); E78.5 Hyperlipidemia, unspecified; K21.9 Gastro-esophageal reflux disease without esophagitis; G47.00 Insomnia, unspecified; E66.9 Obesity, unspecified; G47.33 Obstructive sleep apnea (adult) (pediatric); M19.90 Unspecified osteoarthritis, unspecified site; M81.0 Age-related osteoporosis without current pathological fracture; D64.9 Anemia, unspecified; E87.5 Hyperkalemia; I95.9 Hypotension, unspecified; K44.9 Diaphragmatic hernia without obstruction or gangrene; R65.20 Severe sepsis without septic shock; D69.6 Thrombocytopenia, unspecified; I12.9 Hypertensive chronic kidney disease with stage 1 through stage 4 chronic kidney disease, or unspecified chronic kidney disease; F03.90 Unspecified dementia, unspecified severity, without behavioral disturbance, psychotic disturbance, mood disturbance, and anxiety; E87.6 Hypokalemia; E83.42 Hypomagnesemia; E11.22 Type 2 diabetes mellitus with diabetic chronic kidney disease; E86.0 Dehydration; Z28.21 Immunization not carried out because of patient refusal; Z95.2 Presence of prosthetic heart valve; Z87.81 Personal history of (healed) traumatic fracture; Z68.27 Body mass index [BMI] 27.0-27.9, adult
CPT/HCPCS: 10078; 10081; 10203; 62110; 62900; 70005

== ENCOUNTER → 2021-05-16 | Outpatient (CLI) | payer OTHER ==
[~2021-05-16] MED LIST changes: +DETROL2 MG PO; +TRADJENTA5 MG; +TYLENOL EXTRA500 MG PO; +XYZAL5 MG PO
== END ==
LOC: SJCVC 13:44 → SJCVCIMAG 13:44
PROVIDERS: ATTEND Internal Medicine Cardiovascular Disease
DX: I08.1 Rheumatic disorders of both mitral and tricuspid valves (principal); R94.31 Abnormal electrocardiogram [ECG] [EKG]; I11.9 Hypertensive heart disease without heart failure; E78.00 Pure hypercholesterolemia, unspecified; I48.91 Unspecified atrial fibrillation; E11.9 Type 2 diabetes mellitus without complications; Z95.2 Presence of prosthetic heart valve; Z79.899 Other long term (current) drug therapy; Z79.01 Long term (current) use of anticoagulants; Z51.81 Encounter for therapeutic drug level monitoring